=== PATIENT | male | born 1935 | race Caucasian/White ===

== ENCOUNTER → 2017-11-11 | Outpatient (CLI) | payer MEDICARE, OTHER | END | disposition home or self-care (01) | LOC: HKI 13:21 | DX: Z01.818 Encounter for other preprocedural examination (principal); M17.11 Unilateral primary osteoarthritis, right knee | CPT/HCPCS: G0463 ==

== ENCOUNTER 2017-11-15 10:30 | Inpatient (IN) | payer MEDICARE, OTHER ==
[2017-11-15] MEDS: ACETAMINOPHEN 1000MG/100ML IV 100 ML IVPB (06:00)
[2017-11-15] MEDS: DEXAMETHASONE 4 MG/ML 1 ML INJ IV (06:00)
[2017-11-15] MEDS: LANSOPRAZOLE 30 MG CAP PO (06:00)
[2017-11-15] MEDS: ONDANSETRON 4 MG IV X 1 DOSE IV (06:00)
[2017-11-15] MEDS: CEFAZOLIN 2 GM/50 ML (PMX) 50 ML (FOR WT < 120 KG) IVPB (06:00)
[~2017-11-15 10:30] MED LIST: LACTATED RINGER'S 1,000 ML IV
[2017-11-15] MEDS ORDERED: FENTAnyl 50 MCG/ML VIAL (12:29)
[2017-11-15] MEDS ORDERED: MIDAZOLAM 1 MG/ML 2 ML INJ (12:29)
[2017-11-15] MEDS ORDERED: ROCURONIUM 50 MG INJ (12:29)
[2017-11-15] MEDS ORDERED: CEFAZOLIN 1 GM INJ (12:29)
[2017-11-15] MEDS ORDERED: PROPOFOL 20 ML (12:29)
[2017-11-15] MEDS ORDERED: GLYCOPYRROLATE 0.4 MG INJ (12:29)
[2017-11-15] MEDS ORDERED: NEOSTIGMINE 3 MG/3 ML SYRINGE (12:29)
[2017-11-15] MEDS ORDERED: DEXAMETHASONE 4 MG/ML 1 ML INJ (12:30)
[2017-11-15] MEDS ORDERED: ONDANSETRON 4 MG INJ (12:30)
[2017-11-15] MEDS ORDERED: morphine SULFATE/PF (10 MG/10 ML) INJ (14:17)
[2017-11-15] MEDS ORDERED: PROPOFOL 100 ML (14:17)
[2017-11-15] MEDS ORDERED: PHENYLephrine (100 MCG/ML) 5ML SYG (14:26)
[2017-11-15] MEDS: TRANEXAMIC ACID 1,000 MG in D5W 100 ML AT CLOSURE X1 IVPB (14:30)
[2017-11-15] MEDS: POLYMYXIN B 500000 UNIT INJ (15:00)
[2017-11-15] MEDS ORDERED: MIDAZOLAM 1 MG/ML 2 ML INJ IV (15:00)
[2017-11-15] MEDS ORDERED: ONDANSETRON 4 MG INJ IV (15:00)
[2017-11-15] MEDS ORDERED: DIPHENHYDRAMINE 50 MG INJ IV (15:00)
[2017-11-15] MEDS ORDERED: LABETALOL HCL 20MG INJ IV (15:00)
[2017-11-15] MEDS ORDERED: TRIMETHOBENZAMIDE 100 MG/ML VIAL IM (15:00)
[2017-11-15] MEDS ORDERED: IPRATROPIUM (NEB) 0.5 MG/2.5 ML AMP HHN (15:00)
[2017-11-15] MEDS ORDERED: FENTAnyl 50 MCG/ML VIAL IV ×3 (15:00)
[2017-11-15] MEDS ORDERED: HYDROmorphONE (0.2 MG/ML) 10ML SYG IV ×3 (15:00)
[2017-11-15] MEDS ORDERED: EPHEDrine SULFATE 50 MG/5 ML SYG IV (15:00)
[2017-11-15] MEDS ORDERED: ALBUTEROL 0.083% (NEB) 2.5 MG/3 ML AMP HHN (15:00)
[2017-11-15] MEDS ORDERED: hydrALAzine 20 MG INJ IV (15:00)
[2017-11-15] MEDS ORDERED: MEPERIDINE 25 MG INJ IV (15:00)
[2017-11-15] MEDS: BACITRACIN 50000 UNITS INJ IRR (15:00)
[2017-11-15] MEDS ORDERED: OXYCODONE/ACETAMINOPHEN (5/325) TAB PO ×2 (15:00)
[2017-11-15] MEDS ORDERED: NA PHOSPHATE/BIPHOS 133 ML ENEMA PR (16:00)
[2017-11-15] MEDS ORDERED: BISACODYL 10 MG SUPP PR (16:00)
[2017-11-15] MEDS ORDERED: ZOLPIDEM 5 MG TAB PO (16:00)
[2017-11-15] MEDS ORDERED: SENNA/DOCUSATE NA (8.6MG/50MG) TAB PO (16:00)
[2017-11-15] MEDS ORDERED: MAGNESIUM HYDROXIDE 30ML CUP PO (16:00)
[2017-11-15] MEDS ORDERED: NALOXONE (0.4 MG/ML) INJ IV (16:00)
[2017-11-15] MEDS ORDERED: KETOROLAC 15 MG INJ IV (16:00)
[2017-11-15] MEDS ORDERED: ROPIVACAINE 0.5 % 30 ML VIAL (16:10)
[2017-11-15] MEDS: TRANEXAMIC ACID 1,000 MG in D5W 100 ML AT INCISION X1 IVPB (16:30)
[2017-11-15] MEDS: ASPIRIN (EC) 325 MG TAB PO (17:25)
[2017-11-15] MEDS: DOCUSATE SODIUM 100 MG CAP PO (17:25)
[2017-11-15] MEDS: ONDANSETRON 4 MG INJ IV ×3 (17:25→23:11)
[2017-11-15] MEDS: SOD CHLORIDE 0.9% 1,000 ML IV (17:26)
[2017-11-15] MEDS ORDERED: GLUCOSE GEL 15 GRAM TUBE PO ×2 (17:30)
[2017-11-15] MEDS ORDERED: ALBUTEROL HFA 8 GM INHALER INH (17:30)
[2017-11-15] MEDS ORDERED: DEXTROSE 50% 50 ML SYRINGE IV ×2 (17:30)
[2017-11-15] MEDS ORDERED: GLUCAGON 1 MG INJ IM (17:30)
[2017-11-15] MEDS ORDERED: GLUCOSE GEL 15 GRAM TUBE BUCCAL (17:30)
[2017-11-15] MEDS: CEFAZOLIN 1 GM/50 ML (PMX) 50 ML IVPB ×2 (17:32→23:32)
[2017-11-15] MEDS: INSULIN ASPART [NOVOLOG] 3 ML PEN SC ×2 (18:00→21:00)
[2017-11-15] MEDS: metFORMIN 500 MG TAB PO (18:56)
[2017-11-15] MEDS: ATORVASTATIN 40 MG TAB PO (21:50)
[2017-11-15] MEDS: MOMETASONE 0.24 GM INHALER INH (21:51)
[2017-11-15] MEDS: metroNIDAZOLE 250 MG TAB PO (23:11)
[2017-11-15] MEDS: SACCHAROMYCES BOULARDII 250 MG CAP PO (23:11)
[2017-11-15] MEDS: ENALAPRIL 20 MG TAB PO (23:11)
[2017-11-16] MEDS: DIPHENHYDRAMINE 50 MG INJ IV (03:15)
[2017-11-16] MEDS: SOD CHLORIDE 0.9% 1,000 ML IV (04:02)
[2017-11-16] MEDS: ONDANSETRON 4 MG INJ IV ×2 (04:22→09:34)
[2017-11-16 05:51] LABS: ADD MAN DIFF? NO
[2017-11-16 05:58] LABS: BASOPHILS % 0.2 % (0.0-2.0); EOSINOPHILS % 0.1 % (0.0-7.0); HEMATOCRIT 33.4 % (42.0-52.0); HEMOGLOBIN 11.3 g/dl (14.0-18.0); LYMPHOCYTES # 1.6 10^3/ul (0.8-2.9); LYMPHOCYTES % 14.8 % (15.0-51.0); MEAN CORPUSCULAR HEMOGLOBIN 31.8 pg (29.0-33.0); MEAN CORPUSCULAR HGB CONC 33.8 g/dl (32.0-37.0); MEAN CORPUSCULAR VOLUME 94.1 fl (82.0-101.0); MEAN PLATELET VOLUME 9.8 fl (7.4-10.4); MONOCYTE # 0.8 10^3/ul (0.3-0.9); NEUTROPHIL # 8.5 10^3/ul (1.6-7.5); NEUTROPHILS % 77.4 % (39.0-77.0); PLATELET COUNT 256 10^3/UL (140-415); RED BLOOD COUNT 3.55 10^6/ul (4.70-6.10); RED CELL DISTRIBUTION WIDTH 12.8 % (11.5-14.5)
[2017-11-16 06:27] LABS: ANION GAP 11 (8-16); BLOOD UREA NITROGEN 15 mg/dl (7-20); CALCIUM 8.2 mg/dl (8.4-10.2); CARBON DIOXIDE 27 mmol/L (21-31); CHLORIDE 98 mmol/L (97-110); CREATININE 0.73 mg/dl (0.61-1.24); GLUCOSE 92 mg/dl (70-220); POTASSIUM 4.5 mmol/L (3.5-5.1); SODIUM 131 mmol/L (135-144)
[2017-11-16 06:29] LABS: CHOLESTEROL 92 mg/dl (100-200)
[2017-11-16 06:29] LABS: CHOL/HDL RATIO 2.2 RATIO; HDL CHOLESTEROL 41 mg/dl (31-75); LDL CHOLESTEROL,CALCULATED 40 mg/dl; TRIGLYCERIDES 55 mg/dl (0-149)
[2017-11-16] MEDS: INSULIN ASPART [NOVOLOG] 3 ML PEN SC ×4 (07:35→20:46)
[2017-11-16] MEDS: FINASTERIDE 5 MG TAB PO (08:22)
[2017-11-16] MEDS: CEFAZOLIN 1 GM/50 ML (PMX) 50 ML IVPB ×3 (08:22→16:30)
[2017-11-16] MEDS: DOCUSATE SODIUM 100 MG CAP PO ×2 (08:22→20:48)
[2017-11-16] MEDS: GABAPENTIN 100 MG CAP PO ×2 (08:22→20:48)
[2017-11-16] MEDS: metFORMIN 500 MG TAB PO ×2 (08:22→17:21)
[2017-11-16] MEDS: ENALAPRIL 20 MG TAB PO ×2 (08:23→20:47)
[2017-11-16] MEDS ORDERED: ASPIRIN (EC) 81 MG TAB PO (09:00)
[2017-11-16] MEDS: metroNIDAZOLE 250 MG TAB PO ×2 (09:34→20:47)
[2017-11-16] MEDS: ASPIRIN (EC) 325 MG TAB PO (09:34)
[2017-11-16] MEDS: SACCHAROMYCES BOULARDII 250 MG CAP PO ×2 (09:34→20:48)
[2017-11-16] MEDS: CELECOXIB 100 MG CAP PO ×2 (09:34→20:47)
[2017-11-16] MEDS: MOMETASONE 0.24 GM INHALER INH ×2 (09:41→20:52)
[2017-11-16 10:01] LABS: HEMOGLOBIN A1C 5.4 % (0-5.9)
[2017-11-16 10:39] LABS: ADD UMIC YES; UR ASCORBIC ACID NEGATIVE (NEGATIVE); UR BILIRUBIN (Dip) NEGATIVE (NEGATIVE); UR BLOOD (Dip) 2+ mg/dL (NEGATIVE); UR CLARITY CLEAR (CLEAR); UR COLOR YELLOW (YELLOW); UR GLUCOSE (Dip) NEGATIVE (NEGATIVE); UR KETONES (Dip) NEGATIVE (NEGATIVE); UR LEUKOCYTE ESTERASE (Dip) NEGATIVE Leu/ul (NEGATIVE); UR NITRITE (Dip) NEGATIVE (NEGATIVE); UR RBC 6 /HPF (0-5); UR SPECIFIC GRAVITY (Dip) 1.008 (1.003-1.030); UR TOTAL PROTEIN (Dip) NEGATIVE (NEGATIVE); UR UROBILINOGEN (Dip) NEGATIVE (NEGATIVE); UR WBC 3 /HPF (0-5)
[2017-11-16] MEDS: BETHANECHOL 25 MG TAB PO ×2 (11:43→15:42)
[2017-11-16] MEDS: FERROUS FUMARATE (SR) TAB PO ×2 (12:05→20:58)
[2017-11-16] MEDS: ATORVASTATIN 40 MG TAB PO (20:48)
[2017-11-16] MEDS: TAMSULOSIN (SR) 0.4 MG CAP PO (20:48)
[2017-11-17] MEDS: PANTOPRAZOLE (EC) 40 MG TAB PO (05:58)
[2017-11-17 06:08] LABS: ADD MAN DIFF? NO
[2017-11-17 06:33] LABS: WHITE BLOOD COUNT 10.2 10^3/ul (4.8-10.8)
[2017-11-17 06:33] LABS: BASOPHILS % 0.4 % (0.0-2.0); EOSINOPHILS # 0.3 10^3/ul (0.0-0.5); HEMATOCRIT 32.4 % (42.0-52.0); HEMOGLOBIN 11.3 g/dl (14.0-18.0); LYMPHOCYTES # 1.7 10^3/ul (0.8-2.9); LYMPHOCYTES % 16.7 % (15.0-51.0); MEAN CORPUSCULAR HEMOGLOBIN 32.2 pg (29.0-33.0); MEAN CORPUSCULAR HGB CONC 34.9 g/dl (32.0-37.0); MEAN CORPUSCULAR VOLUME 92.3 fl (82.0-101.0); MEAN PLATELET VOLUME 9.8 fl (7.4-10.4); MONOCYTES % 9.8 % (0.0-11.0); NEUTROPHIL # 7.1 10^3/ul (1.6-7.5); NEUTROPHILS % 69.6 % (39.0-77.0); PLATELET COUNT 226 10^3/UL (140-415); RED BLOOD COUNT 3.51 10^6/ul (4.70-6.10); RED CELL DISTRIBUTION WIDTH 12.8 % (11.5-14.5)
[2017-11-17 06:46] LABS: ANION GAP 10 (8-16); BLOOD UREA NITROGEN 14 mg/dl (7-20); CALCIUM 8.7 mg/dl (8.4-10.2); CARBON DIOXIDE 26 mmol/L (21-31); CHLORIDE 99 mmol/L (97-110); CREATININE 0.71 mg/dl (0.61-1.24); GLUCOSE 94 mg/dl (70-220); POTASSIUM 4.4 mmol/L (3.5-5.1); SODIUM 131 mmol/L (135-144)
[2017-11-17] MEDS: INSULIN ASPART [NOVOLOG] 3 ML PEN SC ×4 (07:35→20:46)
[2017-11-17] MEDS: DOCUSATE SODIUM 100 MG CAP PO ×3 (08:15→21:00)
[2017-11-17] MEDS: GABAPENTIN 100 MG CAP PO ×2 (08:16→20:39)
[2017-11-17] MEDS: SACCHAROMYCES BOULARDII 250 MG CAP PO ×2 (08:16→20:38)
[2017-11-17] MEDS: ASPIRIN (EC) 325 MG TAB PO (08:16)
[2017-11-17] MEDS: FERROUS FUMARATE (SR) TAB PO ×2 (08:16→20:40)
[2017-11-17] MEDS: CELECOXIB 100 MG CAP PO ×2 (08:16→20:42)
[2017-11-17] MEDS: FINASTERIDE 5 MG TAB PO (08:16)
[2017-11-17] MEDS: metroNIDAZOLE 250 MG TAB PO ×2 (08:17→20:39)
[2017-11-17] MEDS: TAMSULOSIN (SR) 0.4 MG CAP PO ×2 (08:17→20:39)
[2017-11-17] MEDS: metFORMIN 500 MG TAB PO ×2 (08:17→18:03)
[2017-11-17] MEDS: MOMETASONE 0.24 GM INHALER INH ×2 (08:18→20:39)
[2017-11-17] MEDS: ENALAPRIL 20 MG TAB PO ×2 (08:18→20:39)
[2017-11-17] MEDS: oxyCODONE 5 MG TAB PO ×3 (13:55→23:17)
[2017-11-17] MEDS: ATORVASTATIN 40 MG TAB PO (20:39)
[2017-11-18 05:09] LABS: ADD MAN DIFF? NO
[2017-11-18 05:16] LABS: WHITE BLOOD COUNT 8.1 10^3/ul (4.8-10.8)
[2017-11-18 05:16] LABS: BASOPHILS % 0.4 % (0.0-2.0); EOSINOPHILS # 0.3 10^3/ul (0.0-0.5); EOSINOPHILS % 3.3 % (0.0-7.0); HEMATOCRIT 32.1 % (42.0-52.0); HEMOGLOBIN 11.2 g/dl (14.0-18.0); LYMPHOCYTES # 1.4 10^3/ul (0.8-2.9); LYMPHOCYTES % 17.8 % (15.0-51.0); MEAN CORPUSCULAR HEMOGLOBIN 31.9 pg (29.0-33.0); MEAN CORPUSCULAR HGB CONC 34.9 g/dl (32.0-37.0); MEAN CORPUSCULAR VOLUME 91.5 fl (82.0-101.0); MEAN PLATELET VOLUME 9.8 fl (7.4-10.4); MONOCYTE # 1.1 10^3/ul (0.3-0.9); MONOCYTES % 13.1 % (0.0-11.0); NEUTROPHIL # 5.3 10^3/ul (1.6-7.5); NEUTROPHILS % 64.9 % (39.0-77.0); PLATELET COUNT 227 10^3/UL (140-415); RED BLOOD COUNT 3.51 10^6/ul (4.70-6.10); RED CELL DISTRIBUTION WIDTH 12.1 % (11.5-14.5)
[2017-11-18] MEDS: PANTOPRAZOLE (EC) 40 MG TAB PO (05:23)
[2017-11-18] MEDS: oxyCODONE 5 MG TAB PO (05:24)
[2017-11-18 05:37] LABS: ANION GAP 10 (8-16); BLOOD UREA NITROGEN 9 mg/dl (7-20); CALCIUM 8.4 mg/dl (8.4-10.2); CARBON DIOXIDE 27 mmol/L (21-31); CHLORIDE 95 mmol/L (97-110); CREATININE 0.63 mg/dl (0.61-1.24); GLUCOSE 102 mg/dl (70-220); POTASSIUM 4.2 mmol/L (3.5-5.1); SODIUM 128 mmol/L (135-144)
[2017-11-18] MEDS: INSULIN ASPART [NOVOLOG] 3 ML PEN SC ×4 (07:50→20:51)
[2017-11-18] MEDS: ENALAPRIL 20 MG TAB PO ×2 (08:39→20:46)
[2017-11-18] MEDS: FERROUS FUMARATE (SR) TAB PO ×2 (08:39→20:45)
[2017-11-18] MEDS: CELECOXIB 100 MG CAP PO ×2 (08:39→20:45)
[2017-11-18] MEDS: GABAPENTIN 100 MG CAP PO ×2 (08:39→20:45)
[2017-11-18] MEDS: TAMSULOSIN (SR) 0.4 MG CAP PO ×2 (08:40→20:45)
[2017-11-18] MEDS: metFORMIN 500 MG TAB PO ×2 (08:40→17:44)
[2017-11-18] MEDS: MOMETASONE 0.24 GM INHALER INH ×2 (08:40→20:47)
[2017-11-18] MEDS: SACCHAROMYCES BOULARDII 250 MG CAP PO ×2 (08:40→20:45)
[2017-11-18] MEDS: ASPIRIN (EC) 325 MG TAB PO (08:40)
[2017-11-18] MEDS: FINASTERIDE 5 MG TAB PO (08:40)
[2017-11-18] MEDS: metroNIDAZOLE 250 MG TAB PO ×2 (08:40→20:45)
[2017-11-18] MEDS: DOCUSATE SODIUM 100 MG CAP PO ×2 (08:41→20:45)
[2017-11-18] MEDS: ATORVASTATIN 40 MG TAB PO (20:45)
[2017-11-19 05:46] LABS: ADD MAN DIFF? NO
[2017-11-19 05:54] LABS: BASOPHILS % 0.5 % (0.0-2.0); EOSINOPHILS # 0.2 10^3/ul (0.0-0.5); EOSINOPHILS % 1.9 % (0.0-7.0); HEMOGLOBIN 11.6 g/dl (14.0-18.0); LYMPHOCYTES # 1.4 10^3/ul (0.8-2.9); LYMPHOCYTES % 17.7 % (15.0-51.0); MEAN CORPUSCULAR HEMOGLOBIN 31.4 pg (29.0-33.0); MEAN CORPUSCULAR HGB CONC 34.1 g/dl (32.0-37.0); MEAN CORPUSCULAR VOLUME 92.1 fl (82.0-101.0); MEAN PLATELET VOLUME 9.9 fl (7.4-10.4); MONOCYTE # 1.2 10^3/ul (0.3-0.9); MONOCYTES % 14.5 % (0.0-11.0); NEUTROPHIL # 5.2 10^3/ul (1.6-7.5); NEUTROPHILS % 64.9 % (39.0-77.0); PLATELET COUNT 231 10^3/UL (140-415); RED BLOOD COUNT 3.69 10^6/ul (4.70-6.10); RED CELL DISTRIBUTION WIDTH 12.5 % (11.5-14.5)
[2017-11-19 06:18] LABS: ANION GAP 9 (8-16); BLOOD UREA NITROGEN 9 mg/dl (7-20); CALCIUM 8.8 mg/dl (8.4-10.2); CARBON DIOXIDE 30 mmol/L (21-31); CHLORIDE 97 mmol/L (97-110); CREATININE 0.65 mg/dl (0.61-1.24); GLUCOSE 105 mg/dl (70-220); POTASSIUM 4.3 mmol/L (3.5-5.1); SODIUM 132 mmol/L (135-144)
[2017-11-19] MEDS: PANTOPRAZOLE (EC) 40 MG TAB PO (06:18)
[2017-11-19] MEDS: INSULIN ASPART [NOVOLOG] 3 ML PEN SC (07:50)
[2017-11-19] MEDS: CELECOXIB 100 MG CAP PO (08:31)
[2017-11-19] MEDS: metroNIDAZOLE 250 MG TAB PO (08:31)
[2017-11-19] MEDS: SACCHAROMYCES BOULARDII 250 MG CAP PO (08:31)
[2017-11-19] MEDS: ASPIRIN (EC) 325 MG TAB PO (08:31)
[2017-11-19] MEDS: FINASTERIDE 5 MG TAB PO (08:31)
[2017-11-19] MEDS: GABAPENTIN 100 MG CAP PO (08:31)
[2017-11-19] MEDS: TAMSULOSIN (SR) 0.4 MG CAP PO (08:31)
[2017-11-19] MEDS: FERROUS FUMARATE (SR) TAB PO (08:31)
[2017-11-19] MEDS: ENALAPRIL 20 MG TAB PO (08:32)
[2017-11-19] MEDS: MOMETASONE 0.24 GM INHALER INH (08:32)
[2017-11-19] MEDS: metFORMIN 500 MG TAB PO (08:35)
== END 2017-11-19 11:49 | disposition home health service (06) | DRG 470 ==
LOC: REC 10:30 → ICU 11-16 05:57 → MS1 18:35
PROVIDERS: Orthopaedic Surgery
PROC: 0SRC0J9 Replacement of Right Knee Joint with Synthetic Substitute, Cemented, Open Approach (ICD-10-PCS; principal; 2017-11-15 12:30)
PROC: 0T9B70Z Drainage of Bladder with Drainage Device, Via Natural or Artificial Opening (ICD-10-PCS; 2017-11-15 14:06)
DX: M17.11 Unilateral primary osteoarthritis, right knee (principal); E11.9 Type 2 diabetes mellitus without complications; R00.1 Bradycardia, unspecified; E87.1 Hypo-osmolality and hyponatremia; I10 Essential (primary) hypertension; E78.5 Hyperlipidemia, unspecified; N40.1 Benign prostatic hyperplasia with lower urinary tract symptoms; J43.9 Emphysema, unspecified; I25.10 Atherosclerotic heart disease of native coronary artery without angina pectoris; R33.8 Other retention of urine; K59.00 Constipation, unspecified; R33.9 Retention of urine, unspecified; T44.7X5A Adverse effect of beta-adrenoreceptor antagonists, initial encounter; Y92.238 Other place in hospital as the place of occurrence of the external cause; Z79.84 Long term (current) use of oral hypoglycemic drugs
CPT/HCPCS: 73560; 80048; 80061; 81001; 82962; 83036; 85025; 86850; 86900; 86901; 87081; 87086; 88305; 88311; 93005; 97110; 97116; 97162; 97530

== ENCOUNTER → 2017-12-02 | Outpatient (CLI) | payer MEDICARE, OTHER | END | disposition home or self-care (01) | LOC: HKI 14:37 | DX: Z09 Encounter for follow-up examination after completed treatment for conditions other than malignant neoplasm (principal); Z96.651 Presence of right artificial knee joint; E11.8 Type 2 diabetes mellitus with unspecified complications; Z79.84 Long term (current) use of oral hypoglycemic drugs | CPT/HCPCS: 73560; 73560-RT ==

== ENCOUNTER → 2017-12-30 | Outpatient (CLI) | payer MEDICARE, OTHER | END | disposition home or self-care (01) | LOC: HKI 09:50 | DX: Z09 Encounter for follow-up examination after completed treatment for conditions other than malignant neoplasm (principal); M25.561 Pain in right knee; Z96.651 Presence of right artificial knee joint | CPT/HCPCS: 73560; 73560-RT ==

== ENCOUNTER → 2018-02-13 | Outpatient (CLI) | payer MEDICARE, OTHER | END | disposition home or self-care (01) | LOC: HKI 09:32 | DX: Z09 Encounter for follow-up examination after completed treatment for conditions other than malignant neoplasm (principal); Z96.651 Presence of right artificial knee joint | CPT/HCPCS: 73560; 73560-RT ==

== ENCOUNTER → 2018-05-29 | Outpatient (CLI) | payer MEDICARE, OTHER | END | disposition home or self-care (01) | LOC: HKI 08:51 | DX: Z47.1 Aftercare following joint replacement surgery (principal); Z96.651 Presence of right artificial knee joint | CPT/HCPCS: 73560; 73560-RT ==